=== PATIENT | female | born 1950 | race Caucasian/White ===

== ENCOUNTER 2022-01-12 07:23 | Day surgery (SDC) | payer BC ==
[2022-01-12] MEDS ORDERED: Midazolam 1 MG/ML 2 ML SDV IV ONE (07:24)
[2022-01-12] MEDS ORDERED: fentaNYL 100 MCG/2 ML SDV IV ONE (07:24)
[2022-01-12] MEDS ORDERED: Sodium Chloride 0.9% 10 ML Syringe FLUSH PRN (07:30)
[2022-01-12] MEDS ORDERED: Lactated Ringers 1,000 ML IV PRN (07:30)
[2022-01-12] MEDS ORDERED: acetaZOLAMIDE 500 MG Cap.ER PO ONE (09:30)
== END 2022-01-12 09:55 | disposition home or self-care (01) ==
LOC: FB.SDS 07:23
PROVIDERS: ATTEND Ophthalmology
DX: H26.9 Unspecified cataract (principal); E66.9 Obesity, unspecified; G62.2 Polyneuropathy due to other toxic agents; I82.409 Acute embolism and thrombosis of unspecified deep veins of unspecified lower extremity; Z68.37 Body mass index [BMI] 37.0-37.9, adult; Z79.899 Other long term (current) drug therapy; Z90.49 Acquired absence of other specified parts of digestive tract; Z98.890 Other specified postprocedural states; Z90.710 Acquired absence of both cervix and uterus
CPT/HCPCS: 00142; 66984; A9270; J2250; J3010; J7120

== ENCOUNTER 2022-02-02 07:00 | Day surgery (SDC) | payer MEDICARE, BC ==
[~2022-02-02 07:00] MED LIST: Lactated Ringers 1,000 ML IV PRN; Sodium Chloride 0.9% 10 ML Syringe FLUSH PRN
[2022-02-02] MEDS ORDERED: Midazolam 1 MG/ML 2 ML SDV IV ONE (07:01)
[2022-02-02] MEDS ORDERED: fentaNYL 100 MCG/2 ML SDV IV ONE (07:01)
[2022-02-02] MEDS ORDERED: Lactated Ringers 1,000 ML IV ONE (07:01)
[2022-02-02] MEDS ORDERED: acetaZOLAMIDE 500 MG Cap.ER PO ONE (09:00)
== END 2022-02-02 09:25 | disposition home or self-care (01) ==
LOC: FB.SDS 07:00
PROVIDERS: ATTEND Ophthalmology
DX: H25.13 Age-related nuclear cataract, bilateral (principal); H04.123 Dry eye syndrome of bilateral lacrimal glands; H02.831 Dermatochalasis of right upper eyelid; H02.834 Dermatochalasis of left upper eyelid; Z79.899 Other long term (current) drug therapy; Z98.890 Other specified postprocedural states
CPT/HCPCS: 00142; 66984; A9270; J2250; J3010; J7120; V2632